=== PATIENT | male | born 2000 | race Caucasian/White ===

== ENCOUNTER 2018-01-27 23:27 | Emergency (ER) | payer BC, OTHER ==
[2018-01-28 00:26] LABS: ABSOLUTE EOSINOPHILS # (AUTO) 0.2 10^3/uL (0.0-0.6); ABSOLUTE LYMPHOCYTES (AUTO) 3.9 10^3/uL (0.5-4.7); ABSOLUTE MONOCYTES (AUTO) 0.7 10^3/uL (0.1-1.4); ABSOLUTE NEUT (AUTO) 4.6 10^3/uL (1.7-8.2); BASOPHILS % (AUTO) 0.3 % (0-2); EOSINOPHILS % (AUTO) 2.2 % (0-6); HEMATOCRIT 46.8 % (37.9-51.0); HEMOGLOBIN 16.5 g/dL (13.5-17.0); LYMPHOCYTES % (AUTO) 41.5 % (13-45); MEAN CORPUSCULAR HEMOGLOBIN 29.9 pg (27.0-33.4); MEAN CORPUSCULAR HGB CONC 35.2 g/dL (32.0-36.0); MEAN CORPUSCULAR VOLUME 85 fl (80-97); MONOCYTES % (AUTO) 7.2 % (3-13); PLATELET COUNT 221 10^3/uL (150-450); RED BLOOD COUNT 5.51 10^6/uL (4.35-5.55); RED CELL DISTRIBUTION WIDTH 12.7 % (11.5-14.0); SEGMENTED NEUTROPHILS % (AUTO) 48.8 % (42-78); TOTAL CELLS COUNTED % (AUTO) 100 %; WHITE BLOOD COUNT 9.4 10^3/uL (4.0-10.5)
[2018-01-28 00:36] LABS: APPEARANCE,URINE SLIGHTLY-CLOUDY; BILIRUBIN,URINE NEGATIVE (NEGATIVE); COLOR,URINE YELLOW; GLUCOSE, URINE NEGATIVE (NEGATIVE); KETONES,URINE NEGATIVE (NEGATIVE); LEUKOCYTE ESTERASE,URINE NEGATIVE (NEGATIVE); NITRITE,URINE NEGATIVE (NEGATIVE); PROTEIN,URINE NEGATIVE (NEGATIVE); URINE SPECIFIC GRAVITY 1.025; UROBILINOGEN,URINE NEGATIVE mg/dL (<2.0)
[2018-01-28] MEDS ORDERED: METOCLOPRAMIDE HCL ORAL SOLN 10 MG/10 ML UDCUP PO ONE (01:42)
[2018-01-28] MEDS ORDERED: MAG HYDROX/AL HYDROX/SIMETH SUSP 30 ML UDCUP PO ONE ×2 (01:42→03:14)
[2018-01-28] MEDS ORDERED: MORPHINE SULFATE 10 MG/ML INJ IM ONE (01:42)
[2018-01-28] MEDS ORDERED: LIDOCAINE 2% VISCOUS SOLN 20 ML UDCUP PO ONE (01:42)
[2018-01-28 01:44] LABS: ALANINE AMINOTRANSFERASE 54 U/L (10-40); ALBUMIN 4.8 g/dL (3.7-5.6); ALKALINE PHOSPHATASE 52 U/L (65-260); ANION GAP 17 (5-19); ASPARTATE AMINO TRANSFERASE 29 U/L (10-45); BILIRUBIN,DIRECT 0.2 mg/dL (0.0-0.4); BILIRUBIN,TOTAL 0.3 mg/dL (0.2-1.3); BLOOD UREA NITROGEN 12 mg/dL (7-20); CALCIUM 10.3 mg/dL (8.4-10.2); CARBON DIOXIDE 27 mmol/L (22-30); CHLORIDE 102 mmol/L (98-107); GLUCOSE 94 mg/dL (75-110); LIPASE 95.6 U/L (23-300); POTASSIUM 4.2 mmol/L (3.6-5.0); SODIUM 146.4 mmol/L (137-145); TOTAL PROTEIN 7.5 g/dL (6.3-8.2)
--- NOTE | 2018-01-28 01:47 | ER Document Report ---
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 Patient states that on the day the pain started he was at a [employer]. He admits to some alcohol intake and eating pizza that night. He states since then he has had a constant aching pain in the epigastric region with intermittent sharp pain. He denies radiation. He states food makes it worse. Patient did take Pepto which he states initially helped but as soon as he ate the pain returned. Patient's last normal bowel movement was 4 days prior to arrival. He states he had a small bowel movement today but feels constipated, bloated and was straining. He is not currently on any medication but does take probiotics. He denies any fever, chills, nausea, vomiting, dysuria, back pain. TRAVEL OUTSIDE OF THE [place] IN LAST 30 DAYS: No - HPI Onset: Other Onset/Duration: Gradual, Persistent Quality of pain: Achy, Stabbing Severity: Moderate Pain Level: 2 Associated symptoms: Other - Constipation. denies: Chest pain, Diarrhea, Fever , Headache, Nausea, Vomiting, Shortness of breath Exacerbated by: Food Relieved by: Other - Pepto-Bismol Similar symptoms previously: Yes Recently seen / treated by doctor: Yes - Related Data Allergies/Adverse Reactions: No Known Allergies Allergy (Verified 10/22/13 22:48) Past Medical History - General Information source: Patient, Parent, [facility] Records - Social History Smoking Status: Current Every Day Smoker Cigarette use (# per day): No Chew tobacco use (# tins/day): No - Patient vapes tobacco Smoking Education Provided: Yes - Smoking cessation counseling was provided for 4 minutes at the bedside Frequency of alcohol use: Occasional Drug Abuse: None Lives with: Parents Family History: CAD - aortic valve, CVA, Hypertension, Thyroid Disfunction Patient has suicidal ideation: No Patient has homicidal ideation: No GI Medical History: Reports: Hx Irritable Bowel Musculoskeletal Medical History: 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 Denies recent illness. Denies weight loss, recent hospitalizations. EENT: Denies visual changes, eye pain. Denies sore throat, oral lesions, difficulty swallowing. CARDIOVASCULAR: Denies chest pain. Denies palpitations. Denies lower extremity edema. RESPIRATORY: Denies cough. Denies shortness of breath, wheezing. GASTROINTESTINAL: Denies nausea, vomiting, or diarrhea. Denies blood in vomitus , stools, or per rectum. Denies black, tarry stools. GENITOURINARY: Denies difficulty urinating, painful urination, frequency, blood in urine, testicular pain or penile discharge. MUSCULOSKELETAL: Denies back or neck pain or stiffness. Denies joint pain or swelling. SKIN: Denies rash, lesions or sores. HEMATOLOGIC : Denies easy bruising or bleeding. LYMPHATIC: Denies swollen glands. NEUROLOGICAL: Denies confusion or altered mental status. Denies loss of consciousness. Denies dizziness or lightheadedness. Denies headache. Denies weakness or paralysis. Denies problems difficulty with ambulation, slurred speech. Denies sensory loss, numbness, or tingling. Denies seizures. PSYCHIATRIC: Denies anxiety or stress. Denies depression, suicidal ideation, or Physical Exam - Vital signs Vitals: Temp Pulse Resp BP Pulse Ox 98.1 F 72 18 169/71 H 99 01/27/18 23:31 01/27/18 23:31 01/27/18 23:31 01/27/18 23:31 01/27/18 23:31 - Notes Notes: PHYSICAL EXAMINATION: GENERAL: Well-appearing, well-nourished and in no acute distress. HEAD: Atraumatic, normocephalic. EYES: Pupils equal round and reactive to light, extraocular movements intact, sclera anicteric, conjunctiva are normal. ENT: Nares patent, oropharynx clear without exudates. Moist mucous membranes. NECK: Normal range of motion, supple without lymphadenopathy LUNGS: Breath sounds clear to auscultation bilaterally and equal. No wheezes rales or rhonchi. HEART: Regular rate and rhythm without murmurs ABDOMEN: Pain with palpation to the epigastric region. No guarding, no rebound. No masses appreciated. Negative Wyatt's, negative McBurney's. Musculoskeletal: Normal range of motion, no pitting or edema. No cyanosis. NEUROLOGICAL: Cranial nerves grossly intact. Normal speech, normal gait. Normal sensory, motor exams PSYCH: Normal mood, normal affect. SKIN: Warm, Dry, normal turgor, no rashes or lesions noted. Course - Re-evaluation Re-evalutation: Laboratory 01/28/18 01/28/18 01/28/18 00:05 00:05 00:05 WBC 9.4 RBC 5.51 Hgb 16.5 Hct 46.8 MCV 85 MCH 29.9 MCHC 35.2 RDW 12.7 Plt Count 221 Seg Neutrophils % 48.8 Lymphocytes % 41.5 Monocytes % 7.2 Eosinophils % 2.2 Basophils % 0.3 Absolute Neutrophils 4.6 Absolute Lymphocytes 3.9 Absolute Monocytes 0.7 Absolute Eosinophils 0.2 Absolute Basophils 0.0 Sodium 146.4 H Potassium 4.2 Chloride 102 Carbon Dioxide 27 Anion Gap 17 BUN 12 Creatinine 0.90 Est GFR ( Amer) > 60 Est GFR (Non-Af Amer) > 60 Glucose 94 Calcium 10.3 H Total Bilirubin 0.3 Direct Bilirubin 0.2 Neonat Total Bilirubin Not Reportable Neonat Direct Bilirubin Not Reportable Neonat Indirect Bili Not Reportable AST 29 ALT 54 H Alkaline Phosphatase 52 L Total Protein 7.5 Albumin 4.8 Lipase 95.6 Urine Color YELLOW Urine Appearance SLIGHTLY-CLOUDY Urine pH 6.0 Ur Specific [place] 1.025 Urine Protein NEGATIVE Urine Glucose (UA) NEGATIVE Urine Ketones NEGATIVE Urine Blood NEGATIVE Urine Nitrite NEGATIVE Urine Bilirubin NEGATIVE Urine Urobilinogen NEGATIVE Ur Leukocyte Esterase NEGATIVE Urine RBC (Auto) 1 Squamous Epi Cells Auto <1 Urine Mucus (Auto) OCC Urine Ascorbic Acid NEGATIVE 01/28/18 03:23 17-year-old male with known IBS presents with complaint of abdominal pain that started 2 days prior to arrival. Pain is located in the epigastric region described as an aching pain with intermittent sharp pain. Vital signs reviewed upon arrival and patient is afebrile, hypertensive. He does not appear toxic or dehydrated. Exam is significant for mild epigastric abdominal tenderness with palpation. No right lower quadrant tenderness. Acute abdominal series was obtained and significant for a large amount of stool burden. Ultrasound of the right upper quadrant was obtained and showed no evidence of cholecystitis, cholelithiasis but did show fatty liver. CBC is without leukocytosis or anemia. CMP unremarkable. Lipase within normal limits. Urinalysis not consistent with infection. Reviewed findings with patient and parents. They have been provided copies of their imaging. Discussed the need for dietary changes. Patient did receive GI cocktail, IM morphine and does report improvement of symptoms. He will be given mag citrate for home. Advised to take MiraLAX at least every other day. Patient was evaluated and treated as appropriate for the patient's presenting symptoms and complaint, with consideration of any critical or life threatening conditions that may be associated with their obtained history and exam as noted above. All results were discussed with patient and parents. Patient provided the opportunity to ask questions, and express concerns. Patient was educated on treatments based on their presumed diagnosis as noted above. At this time we will discharge the patient with return precautions and follow-up recommendations. Verbal discharge instructions given a the bedside. Medication warnings reviewed. Patient is in agreement with this plan and has verbalized understanding of return precautions. After careful consideration I feel that that patient can be safely discharged from the emergency department, they were advised to followup with a primary care physician in 2-3 days. Dictation on this chart was performed using voice recognition software and may result in unintended grammatical, spelling, syntax or errors. - Vital Signs Vital signs: Temp Pulse Resp BP Pulse Ox 97.3 F 56 L 13 135/60 H 96 01/28/18 03:28 01/28/18 03:28 01/28/18 03:28 01/28/18 03:28 01/28/18 03:28 - Laboratory Result Diagrams: 01/28/18 00:05 01/28/18 00:05 Laboratory results interpreted by me: 01/28/18 00:05 Sodium 146.4 H Calcium 10.3 H ALT 54 H Alkaline Phosphatase 52 L - Diagnostic Test Radiology reviewed: Image reviewed, Reports reviewed Discharge - Discharge Clinical Impression: Epigastric abdominal pain, Elevated blood pressure reading, Fatty liver Constipation Qualifiers: Constipation type: unspecified constipation type Qualified Code(s): K59.00 - Constipation, unspecified Condition: Good Disposition: HOME, SELF-CARE Instructions: Bulk Laxatives, Constipation ([facility]), Observation for Appendicitis ([facility]) Additional Instructions: For your child's constipation: You should take mag citrate provide your child with one half the solution and if they do not have a bowel movement within 4 hours given the other half. After your child's constipation is resolved take MiraLAX every other day. 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 Return immediately if your child develops persistent vomiting, becomes lethargic , has worsening abdominal pain, develops a fever greater than 101, or has any other symptoms that are concerning to you. Forms: Elevated Blood Pressure Referrals: SHARON LITTLE MD [Primary Care Provider] - Follow up as needed
--- NOTE | 2018-01-28 02:24 | RADIOLOGY REPORT (SQ) ---
EXAM DESCRIPTION: XR ABDOMEN SUPINE AND ERECT WITH CHEST (ABD ACUTE SERIES) COMPLETED DATE/TME: 01/28/2018 01:45 CLINICAL HISTORY: 17 years, Male, Abdominal pain, history of constipation COMPARISON: None. NUMBER OF VIEWS: 4 TECHNIQUE: Upright chest with supine and erect views of the abdomen LIMITATIONS: None. FINDINGS: The heart size is normal. Lungs are clear. No pneumothorax. No free air under the hemidiaphragms. The bowel gas pattern is nonspecific. Moderate stool throughout colon. Nondilated air-filled loops of large and small bowel are noted with a few air-fluid levels. No free air. IMPRESSION: Negative chest. Moderate stool throughout colon. A few nondilated air-fluid levels could reflect mild ileus 2010 [employer]- All Rights Reserved
--- NOTE | 2018-01-28 02:35 | RADIOLOGY REPORT (SQ) ---
EXAM DESCRIPTION: US ABDOMEN LIMITED COMPLETED DATE/TME: 01/28/2018 01:42 CLINICAL HISTORY: 17 years, Male, Epigastric abdominal pain COMPARISON: None. TECHNIQUE: Limited ultrasound of the right upper quadrant LIMITATIONS: None. FINDINGS: Echogenic appearance to the liver consistent with fatty infiltrative change. No focal liver lesions. Gallbladder is somewhat contracted however no definitive gallstones. No gallbladder wall thickening or pericholecystic fluid. The CBD measures 1.3 mm. The visualized portions of the pancreas are unremarkable. Visualized abdominal aorta is unremarkable. The visualized right kidney is unremarkable. There is no ascites. IMPRESSION: Fatty infiltrative change to the liver. Remainder is unremarkable 2010 [email or web address]- All Rights Reserved
[2018-01-28] MEDS ORDERED: DICYCLOMINE HCL 20 MG TABLET PO ONE (03:23)
[2018-01-28 03:35] VITALS: BP 135/60
== END 2018-01-28 03:35 | disposition home or self-care (01) ==
LOC: ER 23:27
DX: K58.1 Irritable bowel syndrome with constipation (principal); Z79.899 Other long term (current) drug therapy; R10.13 Epigastric pain; K76.0 Fatty (change of) liver, not elsewhere classified; R03.0 Elevated blood-pressure reading, without diagnosis of hypertension; F17.290 Nicotine dependence, other tobacco product, uncomplicated; Z71.6 Tobacco abuse counseling
CPT/HCPCS: 99284; 96372; 36415; 83690; 85025; 80053; 81001; 74022; 76705; J3490; J2270